=== PATIENT | female | born 1955 | race Caucasian/White ===

== ENCOUNTER 2023-08-14 08:48 | Day surgery (SDC) | payer MEDICARE, OTHER, SELFPAY ==
[2023-08-14 09:03] VITALS: BP 149/91; PULSE 68; RESP 16; O2SAT 95; BMI 31.9
[2023-08-14] MEDS: LACTATED RINGERS 1,000 ML 42 ML IV (09:11)
--- NOTE | 2023-08-14 10:09 | PM.HP.1 ---
History of Present Illness History of Present Illness Date Patient Seen: 08/14/23 Time Patient Seen: 10:09 Chief complaint: Colonoscopy w/poss bx Narrative: Imelda is a 68-year-old woman who is here for a colonoscopy. She has had 3 before in [place]. She has always had polyps removed. No known family history of colon cancer. [facility] Medical History (Updated 08/14/23 @ 10:10 by Colton Stokes MD) HTN (hypertension) Hypercholesteremia Hypothyroidism Surgical History (Updated 08/14/23 @ 09:13 by Sandy Be RN) History of total right knee replacement Social History Smoking Status: Never smoker Meds Home Medications and Allergies Home Medications Medication Instructions Recorded Confirmed Type Baby Aspirin 81 mg PO DAILY 08/14/23 08/14/23 History hydrochlorothiazide 25 mg tablet 25 mg PO BID 08/14/23 08/14/23 History levothyroxine 50 mcg tablet 50 mcg PO DAILY 08/14/23 08/14/23 History losartan 50 mg tablet 50 mg PO BID 08/14/23 08/14/23 History sertraline 100 mg tablet 100 mg PO DAILY 08/14/23 08/14/23 History simvastatin 10 mg tablet 10 mg PO DAILY 08/14/23 08/14/23 History Allergies Allergy/AdvReac Type Severity Reaction Status Date / Time lisinopril AdvReac Cough Verified 08/14/23 08:59 Exam Vital Signs (past 8 hours): - 08/14/23 09:03 Pulse Rate 68 Respiratory Rate 16 Blood Pressure 149/91 H Pulse Oximetry 95 Oxygen Delivery Method Room Air Oxygen Delivery Method Room Air Const General: No acute distress Resp Effort & Inspection: normal respiratory effort Assessment & Plan Assessment and plan (1) Colon cancer screening: Status: Acute Plan We reviewed the risks and benefits of colonoscopy for colon cancer screening and she would like to proceed.
--- NOTE | 2023-08-14 11:03 | PM.OP.COLON ---
Operative Date/Time/Diagnoses Date of procedure: 08/14/23 Time of procedure: 11:03 Pre-op diagnosis: Colon cancer screening Post-op diagnosis: same Procedure & Clinicians Study performed: Colonoscopy Same procedure as scheduled: Yes Surgeon: Colton Stokes Procedure Notes Procedure in detail: Surgeon: Colton Stokes MD Anesthesia: Arina Whittaker DO Procedure: The patient was brought to the endoscopy suite, placed in left lateral decubitus position. The patient was connected to monitoring devices. A time-out was performed. Sedation was administered. Once the patient was adequately sedated, a digital rectal exam was performed and was normal. The scope was then inserted and advanced to the cecum where the appendiceal orifice was identified and photographed. The scope was then slowly withdrawn over greater than 6 minutes. The mucosa was thoroughly inspected. No abnormalities were noted. The scope was retroflexed in the rectum. No abnormalities were. The scope was straightened and removed. The patient was awakened and brought to recovery. Scope withdrawal time: 7 minutes Sedation time: 15 minutes EBL: 0 Findings: Normal colon Post-procedure Recommendations: Colonoscopy in 10 years Disposition: PACU
[2023-08-14 11:08] VITALS: BP 96/57; PULSE 70; RESP 14; TEMP 36.6; O2SAT 92
[2023-08-14 11:12] VITALS: BP 111/62; PULSE 69; RESP 16; O2SAT 96
[2023-08-14 11:17] VITALS: BP 118/71; PULSE 64; RESP 16; TEMP 36.6; O2SAT 96
== END 2023-08-14 11:43 | disposition home or self-care (01) ==
PROVIDERS: PCP Nurse Practitioner Family; Referring Provider Surgery; Visit Provider Surgery
PROC: 0DJD8ZZ Inspection of Lower Intestinal Tract, Via Natural or Artificial Opening Endoscopic (ICD-10-PCS; CPT 45378; principal; 2023-08-14 09:45)
DX: Z12.11 Encounter for screening for malignant neoplasm of colon (principal); Z86.010 Personal history of colon polyps
CPT/HCPCS: G0105; J2704